=== PATIENT | male | born 1990 | race African-American/Black ===

== ENCOUNTER 2021-04-21 11:43 | Emergency (ER) | payer OTHER ==
[~2021-04-21] VITALS: Ht 175.3 cm; Wt 141.6 kg
[2021-04-21] MEDS ORDERED: DEPAKOTE ER500 MG PO (12:00)
[2021-04-21] MEDS ORDERED: IBUPROFEN IB200 MG PO (12:04)
[2021-04-21] MEDS ORDERED: DOXYCYCLINE MO100 M1 PO (12:04)
== END 2021-04-21 12:18 | disposition home or self-care (01) ==
LOC: FSED 11:50
DX: S51.031A Puncture wound without foreign body of right elbow, initial encounter (principal); W26.8XXA Contact with other sharp object(s), not elsewhere classified, initial encounter; Y93.H3 Activity, building and construction; Y92.89 Other specified places as the place of occurrence of the external cause; G40.909 Epilepsy, unspecified, not intractable, without status epilepticus
CPT/HCPCS: 99283